=== PATIENT | male | born 1950 | race Caucasian/White ===

== ENCOUNTER 2019-10-09 14:57 | Outpatient (RCR) | payer MEDICARE, OTHER, SELFPAY | END 2019-10-09 23:59 | disposition home or self-care (01) | LOC: ANHAUDIO 14:57 | PROVIDERS: PCP Family Medicine; Visit Provider Family Medicine | DX: H90.3 Sensorineural hearing loss, bilateral (principal); H93.19 Tinnitus, unspecified ear | CPT/HCPCS: 92557; 92567 ==

== ENCOUNTER 2020-11-06 13:05 | Outpatient (CLI) | payer MEDICARE, OTHER, SELFPAY | END 2020-11-06 13:06 | disposition home or self-care (01) | LOC: ANHCOVIDVC 13:05 | PROVIDERS: PCP Family Medicine | DX: Z23 Encounter for immunization (principal) | CPT/HCPCS: 0001A; 91300 ==

== ENCOUNTER 2020-11-27 13:03 | Outpatient (CLI) | payer MEDICARE, OTHER, SELFPAY | END 2020-11-27 13:04 | disposition home or self-care (01) | LOC: ANHCOVIDVC 13:03 | PROVIDERS: PCP Family Medicine | DX: Z23 Encounter for immunization (principal) | CPT/HCPCS: 0002A; 91300 ==

== ENCOUNTER → 2021-01-07 04:26 | Outpatient (CLI) | payer MEDICARE, OTHER, SELFPAY ==
[2021-01-07 20:06] LABS: SARS-CoV-2 RNA PCR Negative
== END ==
PROVIDERS: PCP Family Medicine; Visit Provider Internal Medicine Gastroenterology
DX: Z01.812 Encounter for preprocedural laboratory examination (principal); Z20.822 Contact with and (suspected) exposure to COVID-19
CPT/HCPCS: C9803; U0003; U0005

== ENCOUNTER 2021-01-10 02:08 | Day surgery (SDC) | payer MEDICARE, OTHER, SELFPAY ==
[2020-12-31 15:15] VITALS: BMI 27.8
[2021-01-10 07:12] VITALS: BP 156/95; PULSE 87; RESP 18; TEMP 36.3; O2SAT 99
[2021-01-10] MEDS: LACTATED RINGERS 1,000 ML 150 ML IV CONT (07:24)
--- NOTE | 2021-01-10 07:24 | PM.HPGS ---
History of Present Illness History of Present Illness Consent: Risks, benefits, and alternatives have been discussed and questions answered. Patient agrees to proceed with procedure. Chief complaint: hx of colon polyps Narrative: Wale Joyce is a 70 year old male Here for colon cancer screening. He had several polyps removed a little over 3 years ago Review of Systems Review of Systems: All systems reviewed & are unremarkable except as noted in HPI and below PMFSH Past Medical History Medical History (Updated 01/10/21 @ 07:27 by Marco Soria MD) Alcohol abuse BP (high blood pressure) Gout Mixed hyperlipidemia Tinnitus Tremor Family History Family History Mother Family history of lung cancer Patient's mother is Father Family history of coronary artery disease Social History Social History Social History: Smoking packs per day: 0.5 Smoking cigarettes per day: 10.0 Years smoked: 42 Smoking pack-years: 21.00 Smoking status: Former smoker Second hand tobacco smoke exposure: No Smoking end date: 08/23/97 Alcohol intake: current Drinks per week: 7 Alcohol use details: one bottle liquor per week Substance use: never Substance use type: does not use Living arrangements: with family Gender identity (if verbalized by the patient): Male Spiritual care concerns: No Meds Home Medications and Allergies Home Medications Medication Instructions Recorded Confirmed Type bimatoprost 0.01 % eye drops 1 drop EACH EYE DAILY 07/31/19 01/10/21 History allopurinol 300 mg tablet 300 mg PO DAILY #90 tablet 09/17/20 01/10/21 Rx atorvastatin 10 mg tablet 10 mg PO DAILY #90 tablet 09/17/20 01/10/21 Rx carvedilol 6.25 mg tablet 6.25 mg PO Q12H #180 tablet 09/17/20 01/10/21 Rx primidone 50 mg tablet 50 mg PO BID #60 tablet 12/18/20 01/10/21 Rx Allergies Allergy/AdvReac Type Severity Reaction Status Date / Time codeine Allergy Severe unknown Verified 01/10/21 07:07 Vital Signs Vital Signs - 24 hr 01/10/21 07:12 Temperature 36.3 C L Pulse Rate 87 Respiratory Rate 18 Blood Pressure 156/95 H Pulse Oximetry 99 Exam Const: General: alert Orientation/consciousness: patient oriented x3 Resp: Auscultation: clear to auscultation bilaterally Cardio: Rhythm: regular rhythm GI: GI Palp: Yes Soft to palpation and No Tenderness to palpation present (GI) Neuro: General: patient oriented x3 Assessment and Plan Assessment and plan (1) Personal history of colonic polyps: Code(s): Z86.010 - Personal history of colonic polyps Status: Acute
--- NOTE | 2021-01-10 08:20 | WPDANESEPPF ---
Anes - Initial Pre Proc Eval Procedure: Operation Date: 01/10/21 08:30 Proposed Procedures p Screening Colonoscopy - Marco Soria MD Date/Time: 01/10/21 08:20 Surgeon: Marco Soria MD Pre Op Diagnosis: hx of colon polyps Patient Data Age: 70 Gender: M Height: 5 ft 10 in Weight: 86.4 kg Last Vital Signs Temp 97.3 F L 01/10/21 07:12 Pulse 87 01/10/21 07:12 Resp 18 01/10/21 07:12 BP 156/95 H 01/10/21 07:12 Pulse Ox 99 01/10/21 07:12 Allergies Allergy/AdvReac Type Severity Reaction Status Date / Time codeine Allergy Severe unknown Verified 01/10/21 07:07 Home Medications Medication Instructions Recorded Confirmed Type bimatoprost 0.01 % eye drops 1 drop EACH EYE DAILY 07/31/19 01/10/21 History allopurinol 300 mg tablet 300 mg PO DAILY #90 tablet 09/17/20 01/10/21 Rx atorvastatin 10 mg tablet 10 mg PO DAILY #90 tablet 09/17/20 01/10/21 Rx carvedilol 6.25 mg tablet 6.25 mg PO Q12H #180 tablet 09/17/20 01/10/21 Rx primidone 50 mg tablet 50 mg PO BID #60 tablet 12/18/20 01/10/21 Rx Patient hx anesthesia problems: none Family hx anesthesia problems: none PMFSH Past Medical History Medical History (Updated 01/10/21 @ 07:27 by Marco Soria MD) Alcohol abuse BP (high blood pressure) Gout Mixed hyperlipidemia Tinnitus Tremor Family History Family History Mother Family history of lung cancer Patient's mother is Father Family history of coronary artery disease Social History Social History Social History: Smoking packs per day: 0.5 Smoking cigarettes per day: 10.0 Years smoked: 42 Smoking pack-years: 21.00 Smoking status: Former smoker Second hand tobacco smoke exposure: No Smoking end date: 08/23/97 Alcohol intake: current Drinks per week: 7 Alcohol use details: one bottle liquor per week Substance use: never Substance use type: does not use Living arrangements: with family Gender identity (if verbalized by the patient): Male Spiritual care concerns: No Anes - Eval Final PreProcedure Day of Procedure 01/10/21 08:20 Patient weight: overweight Heart: regular rate and rhythm Lungs: clear to auscultation Airway: Mallampati scale class II Neurological: alert and oriented Last oral intake: >/= 8 hours ASA classification: III Emergent: no Anesthetic plan: proceed Anesthesia type and monitoring: general GIVS and standard monitoring Informed Consent: The patient's anesthetic plan and its attendant risks and benefits were discussed with the patient/family/POA. Questions were solicited and answers provided to the satisfaction of the patient/family/POA.
[2021-01-10 09:32] VITALS: BP 107/72; PULSE 58; RESP 18; O2SAT 98
[2021-01-10 09:42] VITALS: BP 129/79; PULSE 62; RESP 20; O2SAT 98
[2021-01-10 09:52] VITALS: BP 131/82; PULSE 63; RESP 18; O2SAT 98
== END 2021-01-10 10:09 | disposition home or self-care (01) ==
PROVIDERS: PCP Family Medicine; Visit Provider Internal Medicine Gastroenterology
PROC: 0DJD8ZZ Inspection of Lower Intestinal Tract, Via Natural or Artificial Opening Endoscopic (ICD-10-PCS; CPT 45378; principal; 2021-01-10 08:30)
DX: Z12.11 Encounter for screening for malignant neoplasm of colon (principal); K57.30 Diverticulosis of large intestine without perforation or abscess without bleeding; Z86.010 Personal history of colon polyps; E78.2 Mixed hyperlipidemia; M10.9 Gout, unspecified; I10 Essential (primary) hypertension; R25.1 Tremor, unspecified; F10.10 Alcohol abuse, uncomplicated; Z87.891 Personal history of nicotine dependence
CPT/HCPCS: G0105; J2704; J7120

== ENCOUNTER → 2022-03-23 09:59 | Outpatient (CLI) | payer MEDICARE, SELFPAY ==
--- NOTE | ~2022-03-23 | XR_ITS ---
XR chest 2V DATE: 03/23/2022 10:14 INDICATION: Tremor TECHNIQUE: 2 views COMPARISON: None FINDINGS: Normal heart size. Moderate bilateral hyperinflation suggesting obstructive airways disease . No pulmonary infiltrate or consolidation, pleural effusion or pulmonary vascular congestion or pneu mothorax is detected. There is osteopenia. IMPRESSION: Moderate bilateral hyperinflation suggesting obstructive airways disease Reviewed, dictated and finalized at location B. IMPRESSION: Moderate bilateral hyperinflation suggesting obstructive airways di rumae
== END ==
PROVIDERS: PCP Family Medicine; Visit Provider Nurse Practitioner Gerontology
DX: R63.4 Abnormal weight loss (principal); Z87.891 Personal history of nicotine dependence; R91.8 Other nonspecific abnormal finding of lung field
CPT/HCPCS: 71046

== ENCOUNTER → 2022-03-31 07:58 | Outpatient (CLI) | payer MEDICARE, OTHER, SELFPAY ==
--- NOTE | ~2022-03-31 | US_ITS ---
US abdomen complete EXAMINATION: US Abdomen Complete INDICATION: Elevated liver enzymes PROCEDURE: Realtime High Resolution abdomen ultrasound. COMPARISON: No prior studies for comparison FINDINGS: Gallbladder within normal limits. No gallstones, pericholecystic fluid, gallbladder wall t hickening or biliary dilatation. Common bile duct measures 3 mm. Liver echotexture within normal limits without focal mass. Pancreas within normal limits. Pancreati c tail is obscured by bowel gas. Spleen is unremarkeable. Renal echotexture is within normal limits bilaterally without hydronephrosis, contour deforming mass or renal stone. Right kidney measures 10.1 cm. Left kidney measures 10.5 cm. Visualized aspects of the aorta and IVC are within normal limits. Portal vein is patent. No sonograph ic Restrepo's sign indicated by the technologist. IMPRESSION: 1: Normal abdominal ultrasound. Reviewed, dictated and finalized at location A.
== END ==
PROVIDERS: PCP Family Medicine; Visit Provider Nurse Practitioner Gerontology
DX: R74.8 Abnormal levels of other serum enzymes (principal)
CPT/HCPCS: 76700